=== PATIENT | male | born 1980 | race Two or more races ===

== ENCOUNTER 2022-06-02 13:48 | Day surgery (SDC) | payer BC ==
[~2022-06-02] VITALS: Ht 188 cm; Wt 134.9 kg
[2022-06-02] VITALS (8 sets, daily range): BP systolic 107–115; BP diastolic 68–79
[2022-06-02] MEDS ORDERED: MULT-1085 PO (14:19)
[2022-06-02] MEDS ORDERED: FISH12002 PO (14:19)
[2022-06-02] MEDS ORDERED: SOTA120T PO (14:19)
[2022-06-02] MEDS ORDERED: APIX5TAB3 PO (14:19)
[2022-06-02] MEDS ORDERED: fentaNYL/PF 50MCG/1 ML 2ML syringe IV ONE (14:30)
[2022-06-02] MEDS ORDERED: normal saline 1000ml 1,000 ML IV SCH (14:30)
[2022-06-02] MEDS ORDERED: MIDAZolam 1mg/ml 10ml vial IV ONE (14:30)
[2022-06-02 14:57] LABS: BASOPHILS # (AUTO) 0.1 X10'3 (0-0.2); BASOPHILS % (AUTO) 1.5 % (0-1); EOSINOPHILS # (AUTO) 0.4 X10'3 (0-0.9); EOSINOPHILS % (AUTO) 6.5 % (0-6); HEMATOCRIT 41.5 % (42.0-52.0); HEMOGLOBIN 14.2 g/dl (14.0-17.9); LYMPHOCYTES # (AUTO) 1.9 X10'3 (1.1-4.8); LYMPHOCYTES % (AUTO) 31.4 % (21-51); MEAN CORPUSCULAR HEMOGLOBIN 30.4 PG (27.0-31.0); MEAN CORPUSCULAR HGB CONC 34.2 g/dL (33.0-36.5); MEAN CORPUSCULAR VOLUME 88.6 FL (78-98); MEAN PLATELET VOLUME 9.3 FL (7.4-10.4); MONOCYTES # (AUTO) 0.6 X10'3 (0-0.9); NEUTROPHILS % (AUTO) 50.6 % (42-75); PLATELET COUNT 176 X10'3 (140-440); RED BLOOD COUNT 4.68 X10'6 (4.70-6.10); RED CELL DISTRIBUTION WIDTH 13.6 % (11.5-14.5)
== END 2022-06-02 17:25 | disposition home or self-care (01) ==
LOC: SSTAY O 13:48
PROVIDERS: ATTEND Student in an Organized Health Care Education/Training Program
DX: I48.91 Unspecified atrial fibrillation (principal); Z79.899 Other long term (current) drug therapy
CPT/HCPCS: 36415; 85025; 92960; 93005; 94760; 94799; J2250; J3010; J7030; A4620